=== PATIENT | female | born 1955 | race Caucasian/White ===

== ENCOUNTER 2017-03-16 10:36 | Emergency (ER) | payer BC ==
[~2017-03-16] VITALS: Ht 165.1 cm; Wt 77.1 kg
--- NOTE | 2017-03-16 11:01 | ED CARDIAC/CP/PALPITATIONS ---
History of Present Illness General Chief Complaint: Chest Pain Stated Complaint: CP Source: patient, family Exam Limitations: no limitations Vital Signs & Intake/Output Vital Signs & Intake/Output Vital Signs Date Time Temp Pulse Resp B/P B/P Pulse O2 O2 Flow FiO2 Mean Ox Delivery Rate 03/16 1540 97.3 56 18 131/70 98 Room Air 03/16 1441 97 Room Air 03/16 1328 97.3 58 18 139/72 96 Room Air 03/16 1053 97.8 60 20 155/70 98 Room Air Allergies Coded Allergies: Sulfa (Sulfonamide Antibiotics) (Mild, HIVES 03/16/17) iodine (Mild, HIVES 03/16/17) Uncoded Allergies: SEAFOOD (Mild, GI ISSUES AND SYNCOPE 03/16/17) Reconcile Medications Clonazepam 1 MG TABLET 1 TAB PO BID MENTAL HEALTH (Reported) Lamotrigine 100 MG TABLET 1 TAB PO DAILY MENTAL HEALTH (Reported) Lamotrigine 100 MG TABLET 2 TAB PO QPM MENTAL HEALTH (Reported) Levothyroxine Sodium 112 MCG TABLET 1 TAB PO DAILY AC THYROID (Reported) Pantoprazole Sodium 40 MG TABLET.DR 1 TAB PO DAILY ACID REFLUX (Reported) Sertraline HCl 100 MG TABLET 1 TAB PO DAILY MENTAL HEALTH (Reported) Simvastatin (Simvastatin*) 10 MG TABLET 1 TAB PO QPM CHOLESTEROL (Reported) Tylenol With Codeine (Tylenol With Codeine #3 Tablet) 300 MG-30 MG TABLET 1 TAB PO BIDP PRN PAIN Triage Note: PT BIBA FROM HOME FOR LEFT SIDE NECK PAIN THAT RADIATES INTO JAW. PT STATES PAIN STARTED LAST NIGHT. PT ALSO STATES LAST WEEK SHE HAD ISSUES WITH HER LEGS GIVING OUT. PT ALSO STATES SHE FEELS PRESSURE IN HER CHEST. Triage Nurses Notes Reviewed? yes Onset: Gradual Duration: constant Timing: recent history Location: substernal Radiation: jaw, neck Activities at Onset: none HPI: Patient is a 61-year-old female with a past medical history of CVA, anxiety, seizures, hyperlipidemia and hypothyroidism who presents to emergency room stating for the last 3 days she's felt epigastric mild discomfort mild nausea symptoms and the last 18 hours she has been complaining of persistent left-sided anterior neck pain with radiation to her jaw and down her left arm. Patient also has been complaining of intermittent left-sided lower jaw facial numbness Patient states that her anxiety is much worse because his symptoms patient has been complaining of substernal chest heaviness mild in nature. Patient took a 325 aspirin prior to arrival today. Patient is an every day smoker Denies any illicit drug use denies any significant alcohol use. Complains of intermittent headache in the last 24 hours. Patient and family members deny any fevers chills blurred vision facial droop altered mental status extremity weakness and confusion lightheaded sensation dizziness back pain vomiting shortness of breath cough hemoptysis leg swelling Symptoms began yesterday at rest (CRISTIANE EVANS) Past History Travel History Traveled to [place] past 21 day No Medical History Any Pertinent Medical History? see below for history Neurological: seizure, STROKE Endocrine: hypothyroidism Surgical History Surgical History: non-contributory Psychosocial History What is your primary language Japanese Tobacco Use: Never used Family History Hx Contributory? No (CRISTIANE EVANS) Review of Systems Review of Systems Constitutional: Denies: chills, fever. EENTM: Reports: no symptoms. Respiratory: Reports: see HPI. Denies: cough, short of breath, stridor. Cardiovascular: Reports: see HPI, chest pain. Denies: palpitations, peripheral edema, syncope. GI: Reports: see HPI, abdominal pain, nausea. Genitourinary: Reports: no symptoms. Musculoskeletal: Reports: no symptoms. Skin: Reports: no symptoms. Neurological/Psychological: Reports: see HPI, headache. Hematologic/Endocrine: Reports: no symptoms. Immunologic/Allergic: Reports: no symptoms. All Other Systems: Reviewed and Negative (CRISTIANE EVANS) Physical Exam Physical Exam General Appearance: anxious, mild distress Head: atraumatic Neck: NO CAROTID BRUIT NOTED Cardiovascular: regular rate/rhythm Comments: HEENT: Normal EENT exam, extraocular motion intact, no nystagmus. Pupils equally round and reactive to light and accommodation. Nose is atraumatic. External auditory canal and Tympanic membranes clear. Pharynx normal. No swelling or edema. Neck: Supple, no lymphadenopathy, normal range of motion without pain or tenderness Back: Nontender, no CVA tenderness. Cardiovascular: Regular rate and rhythms no murmurs rubs or gallops, normal JVP Respiratory: Chest nontender. No respiratory distress.breath sounds clear to auscultation bilaterally Abdomen: Soft, nontender nondistended, no appreciable organomegaly. Normal bowel sounds. No ascites Extremity: No edema, no calf tenderness to palpation, normal and equal pulses. Neuro: Alert oriented x3, motor sensory normal, cranial nerves II through XII grossly intact. Skin: No appreciable rash on exposed skin, skin is warm and dry. Psych: Mood and affect is normal, memory and judgment is normal. NIH STROKE SCALE - ZERO GAG REFLEX INTACT SWALLOW STUDY WAS PASSED PT TOLERATED 3 OZ OF WATER Core Measures ACS in differential dx? Yes ASA ordered for poss ACS? PRIOR TO ARRIVAL Severe Sepsis Present: No Septic Shock Present: No (ANTONIO MILES,CRISTIANE) Progress Differential Diagnosis: AMI, aortic dissection, atrial fibrillation, cholecystitis, CHF/pulm edema, costochondritis, hyperkalemia, hypovolemia, hyperthyroid, hyperventilation, intracranial hemorrhage, musculoskeletal pain, myocarditis, pancreatitis, pericarditis, pneumonia, pneumothorax, PSVT, pulmonary embolism, PUD/GERD, PVCs/PACs, respiratory failure, rib fracture, sepsis, unstable angina, V-fib/V-Tach, WPW syndrome Plan of Care: Orders Procedure Date/time Status Lab Add-on Test 03/16 2204 Active TROPONIN LEVEL 03/16 1449 Complete LYME TITRE 03/16 1449 Active EKG 03/16 1449 Active Add-on Test (ER Only) 03/16 1121 Active Add-on Test (ER Only) 03/16 1120 Active Telemetry/Photographic Editor 03/16 1120 Active THYROID STIMULATING HORMONE 03/16 1054 Complete THYROXINE 03/16 1054 Complete LIPASE 03/16 1054 Complete AMYLASE 03/16 1054 Complete TROPONIN LEVEL 03/16 1037 Complete COMPREHENSIVE METABOLIC PANEL 03/16 1037 Complete CBC WITHOUT DIFFERENTIAL 03/16 1037 Complete EKG 03/16 1037 Active Laboratory Tests 03/16/17 1500: Troponin I < 0.01 03/16/17 1449: Lyme Disease Antibody Pending 03/16/17 1054: Anion Gap 9, Estimated GFR 57 L, BUN/Creatinine Ratio 17.0, Glucose 92, Calcium 9.6, Total Bilirubin 0.6, AST 17, ALT 34, Alkaline Phosphatase 72, Troponin I < 0.01, Total Protein 7.1, Albumin 4.4, Globulin 2.7, Albumin/Globulin Ratio 1.6, Amylase 58, Lipase 119, TSH 0.278, Thyroxine (T4) 11.7 H, CBC w Diff NO MAN DIFF REQ, RBC 5.24, MCV 89.2, MCH 30.4, RDW 13.1, MPV 8.8, Gran % 67.8, Lymphocytes % 23.9, Monocytes % 5.5, Eosinophils % 1.7, Basophils % 1.1, Absolute Granulocytes 4.1, Absolute Lymphocytes 1.5, Absolute Monocytes 0.3, Absolute Eosinophils 0.1, Absolute Basophils 0.1, PUBS MCHC 34.1 Patient on initial examination shows no neurological deficit or concerns of CVA CT scan however of head will be ordered. Patient on initial examination was noted to be mildly anxious and in distress patient was offered medications for her symptoms of anxiety or pain and she declined Patient had unremarkable blood work negative troponin and initial Persistent pulmonary embolism is extremely low Patient will be obtaining carotid ultrasound Patient asked if she could take her clonazepam and which she administered her home medications in the emergency room of 1 mg Patient will be obtaining second set of troponin and EKG Patient again is resting comfortable Second set of troponin and EKG was unremarkable. Patient upon discharge looks well no apparent distress denies any chest pain has persistent left lateral neck pain SCM pain however this is not reproducible upon cervical spine movements patient has no central spinous pain Upper extremity was neurovascularly intact Ultrasound was unremarkable for any concerns of stenosis Discussed disposition plan with Dr. CARTER who agrees Patient was strongly advised to follow up with cardiology (ANTONIO MILES,CRISTIANE) Diagnostic Imaging: Viewed by Me: Radiology Read, CT Scan, Ultrasound. Radiology Impression: no acute abnormality, no fracture Initial ED EK BPM, SINUS RHYTHM WITH BORDERLINE Q-WAVE Repeat EKG: unchanged Comments: PATIENT: JOVANNY DAVISON PRESENT AGE: 61 PATIENT ACCOUNT NO: [id number] : 56 LOCATION: [facility] ORDERING PHYSICIAN: CRISTIANE MILES SERVICE DATE: 03/16/175258 EXAM TYPE: US - [id number] DOPPLER EXAMINATION: DUPLEX BILATERAL CAROTID ULTRASOUND CLINICAL INFORMATION: Left neck pain, numbness of left face. History of CVA. COMPARISON: None. TECHNIQUE: Duplex bilateral carotid US was performed using real-time ultrasound and Doppler techniques (integrating B-mode 2D vascular images, Doppler spectral analysis and color flow Doppler imaging). These techniques were utilized to interrogate the extracranial carotid and vertebral arteries bilaterally. The degree of stenosis is based off criteria similar to NASCET. FINDINGS: 1. On the right: No plaque is present at the carotid bifurcation and all velocity measurements are normal and do not suggest a stenosis of greater than 50% diameter reduction in the right ICA. The vertebral artery is patent demonstrating antegrade flow. 2. On the left: Plaque is present at the carotid bifurcation but velocity measurements are normal and do not suggest a stenosis of greater than 50% diameter reduction in the left ICA. The vertebral artery is patent demonstrating antegrade flow. The external carotid arteries appear unremarkable. IMPRESSION: There is plaque present in the left internal carotid artery with normal velocities consistent with a minimal 0-49% stenosis. The right side is normal with no plaque seen. PATIENT: JOVANNY DAVISON PRESENT AGE: 61 PATIENT ACCOUNT NO: [id number] : 56 LOCATION: ER ORDERING PHYSICIAN: CRISTIANE MILES SERVICE DATE: 03/16/17 EXAM TYPE: RAD - XRY-CHEST XRAY, PA AND LATERAL EXAMINATION: XR CHEST CLINICAL INFORMATION: Chest COMPARISON: None TECHNIQUE: 2 views of the chest were obtained. FINDINGS: Heart size is upper limits of normal to borderline enlarged. Pulmonary vascularity is within normal limits. The lungs are hyperinflated with some flattening of the diaphragms. This may indicate an element of chronic obstructive disease. There is no focal consolidation or atelectasis. There is no overt pulmonary edema. There is no pleural effusion or pneumothorax. No acute bony abnormality is seen. IMPRESSION: Borderline heart size. No pulmonary edema, focal consolidation or atelectasis. Possible mild chronic obstructive changes. DICTATED BY: PHYLLIS GAUTAM MD DATE/TIME DICTATED:03/16/171224 WAD BLANKING PRESS ADJUSTER:SHAVON PATIENT: JOVANNY DAVISON PRESENT AGE: 61 PATIENT ACCOUNT NO: [id number] : 56 LOCATION: ER ORDERING PHYSICIAN: CRISTIANE MILES SERVICE DATE: 03/16/17 EXAM TYPE: CAT - CT HEAD WO IV CONTRAST EXAMINATION: CT HEAD WITHOUT CONTRAST CLINICAL INFORMATION: History of stroke. Left facial numbness. COMPARISON: None. TECHNIQUE: Contiguous axial imaging was performed from the skull base to vertex without intravenous contrast. DLP: 616 mGy-cm. FINDINGS: There is no evidence of acute intracranial hemorrhage or territorial infarction. No abnormal mass effect or midline shift is seen. Flores to white matter differentiation is well preserved. No extra-axial fluid collections are identified. No hydrocephalus. No significant volume loss. There is no abnormal attenuation within the brain parenchyma. The osseous structures and soft tissues are normal. The mastoid air cells and visualized portions of the paranasal sinuses are well aerated. IMPRESSION: No acute intracranial pathology. DICTATED BY: ZO VILLAGOMEZ MD DATE/TIME DICTATED:03/16/171213 WAD BLANKING PRESS ADJUSTER:SHAVON (CRISTIANE EVANS) Departure Departure Disposition: HOME OR SELF CARE Condition: Stable Clinical Impression Primary Impression: Neck pain Secondary Impressions: Chest pain Referrals: MICHEAL ARANGO PhD,ROSITA MCKEON Additional Instructions: As discussed continue home medications as directed, on Sunday please follow up and establish a service parts coordinator Dr. Roldan for further evaluation treatment. If symptoms worsen or if YOU develop a new concerning symptom return to emergency room immediately Begin the prescription of Tylenol with Codeine for pain Departure Forms: Customer Survey General Discharge Information Prescriptions: Current Visit Scripts Tylenol With Codeine (Tylenol With Codeine #3 Tablet) 1 TAB PO BIDP PRN PAIN #8 TAB (CRISTIANE EVANS) PA/[facility] Co-Sign Statement Statement: ED Attending supervision documentation- [x] I saw and evaluated the patient. I have also reviewed all the pertinent lab results and diagnostic results. I agree with the findings and the plan of care as documented in the PA's/[facility]'s documentation. [] I have reviewed the ED Record and agree with the PA's/[facility]'s documentation. [] Additions or exceptions (if any) to the PAs/[facility]'s note and plan are summarized below: [] I've seen and personally examined the patient and I agree with the PAs evaluation. She's had left-sided facial pain and neck pain, and pain to the left arm, the pain to the left arm is only from the elbow to the wrist. No weakness. No chest pain or abdominal pain on my questioning. 2 EKGs and negative. 2 troponins are negative. Chest x-ray is unremarkable. Carotid Doppler fails to reveal evidence of stenosis or dissection, CT of the head is negative. The patient was called at home. She is feeling better. She will follow-up the service parts coordinator on Sunday. Return to the emergency department if worse. Lyme titer was added on her blood work. A call was made at 10 PM. (RAUL DO,REYNA L.) Critical Care Note Critical Care Note Critical Care Time: non-applicable (ANTONIO MILES,CRISTIANE)
[2017-03-16 11:31] LABS: ABSOLUTE BASOPHIL COUNT 0.1 /CUMM (0.0-0.2); ABSOLUTE EOSINOPHIL COUNT 0.1 /CUMM (0.0-0.7); ABSOLUTE GRANULOCYTE CT 4.1 /CUMM (1.4-6.5); ABSOLUTE LYMPH COUNT 1.5 /CUMM (1.2-3.4); ABSOLUTE MONOCYTE COUNT 0.3 /CUMM (0.10-0.60); BASOPHIL % 1.1 % (0.0-2.0); EOSINOPHIL % 1.7 % (0-5); GRANULOCYTE % 67.8 % (42.2-75.2); HEMATOCRIT 46.8 % (37-47); MEAN CORPUSCULAR HGB 30.4 PG (27.0-31.0); MEAN CORPUSCULAR HGB CONC 34.1 G/DL (33.0-37.0); MEAN CORPUSCULAR VOLUME 89.2 FL (81.0-99.0); MEAN PLATELET VOLUME 8.8 FL (7.4-10.4); PLATELET COUNT 197 /CUMM (130-400); RBC DISTRIBUTION WIDTH 13.1 % (11.5-14.5); RED BLOOD CELL CT 5.24 /CUMM (4.20-5.40); WHITE BLOOD CELL COUNT 6.1 /CUMM (4.8-10.8)
[2017-03-16] MEDS ORDERED: LEVOTHYROXINE112 MCG PO (11:32)
[2017-03-16] MEDS ORDERED: LAMOTRIGINE100 M2 PO ×2 (11:33→11:34)
[2017-03-16] MEDS ORDERED: SERTRALINE HCL100 MG PO (11:34)
[2017-03-16] MEDS ORDERED: CLONAZEPAM1 M2 PO (11:34)
[2017-03-16] MEDS ORDERED: SIMVASTATIN10 M1 PO (11:35)
[2017-03-16] MEDS ORDERED: PANTOPRAZOLE SO40 M1 PO (11:35)
--- NOTE | 2017-03-16 12:21 | CT SCAN REPORT ---
EXAMINATION: CT HEAD WITHOUT CONTRAST CLINICAL INFORMATION: History of stroke. Left facial numbness. COMPARISON: None. TECHNIQUE: Contiguous axial imaging was performed from the skull base to vertex without intravenous contrast. DLP: 616 mGy-cm. FINDINGS: There is no evidence of acute intracranial hemorrhage or territorial infarction. No abnormal mass effect or midline shift is seen. Flores to white matter differentiation is well preserved. No extra-axial fluid collections are identified. No hydrocephalus. No significant volume loss. There is no abnormal attenuation within the brain parenchyma. The osseous structures and soft tissues are normal. The mastoid air cells and visualized portions of the paranasal sinuses are well aerated. IMPRESSION: No acute intracranial pathology.
--- NOTE | 2017-03-16 12:31 | RADIOLOGY REPORT ---
EXAMINATION: XR CHEST CLINICAL INFORMATION: Chest COMPARISON: None TECHNIQUE: 2 views of the chest were obtained. FINDINGS: Heart size is upper limits of normal to borderline enlarged. Pulmonary vascularity is within normal limits. The lungs are hyperinflated with some flattening of the diaphragms. This may indicate an element of chronic obstructive disease. There is no focal consolidation or atelectasis. There is no overt pulmonary edema. There is no pleural effusion or pneumothorax. No acute bony abnormality is seen. IMPRESSION: Borderline heart size. No pulmonary edema, focal consolidation or atelectasis. Possible mild chronic obstructive changes.
--- NOTE | 2017-03-16 14:44 | ULTRASOUND REPORT ---
EXAMINATION: DUPLEX BILATERAL CAROTID ULTRASOUND CLINICAL INFORMATION: Left neck pain, numbness of left face. History of CVA. COMPARISON: None. TECHNIQUE: Duplex bilateral carotid US was performed using real-time ultrasound and Doppler techniques (integrating B-mode 2D vascular images, Doppler spectral analysis and color flow Doppler imaging). These techniques were utilized to interrogate the extracranial carotid and vertebral arteries bilaterally. The degree of stenosis is based off criteria similar to NASCET. FINDINGS: 1. On the right: No plaque is present at the carotid bifurcation and all velocity measurements are normal and do not suggest a stenosis of greater than 50% diameter reduction in the right ICA. The vertebral artery is patent demonstrating antegrade flow. 2. On the left: Plaque is present at the carotid bifurcation but velocity measurements are normal and do not suggest a stenosis of greater than 50% diameter reduction in the left ICA. The vertebral artery is patent demonstrating antegrade flow. The external carotid arteries appear unremarkable. IMPRESSION: There is plaque present in the left internal carotid artery with normal velocities consistent with a minimal 0-49% stenosis. The right side is normal with no plaque seen.
[2017-03-16 15:40] VITALS: BP 131/70
[2017-03-16] MEDS ORDERED: TYLENOL WITH C1 EACH PO (16:02)
== END 2017-03-16 16:18 ==
LOC: ERH 10:36
PROVIDERS: Emergency Medicine
DX: M54.2 Cervicalgia (principal); R07.9 Chest pain, unspecified; R10.13 Epigastric pain; R11.0 Nausea
CPT/HCPCS: 86618; 93005; 93010